=== PATIENT | male | born 1980 | race Caucasian/White ===

== ENCOUNTER 2017-06-14 10:16 | Emergency (ER) | payer BC, MEDICARE, OTHER ==
[2017-06-14 11:34] VITALS: BP 125/84
--- NOTE | 2017-06-14 12:03 | RAD ---
HISTORY: Right elbow pain, trauma COMPARISONS: None VIEWS: 4, Frontal, lateral, and oblique views of the right elbow FINDINGS: BONE DENSITY: Normal. BONES: There is no displaced fracture. There are enthesophytes of the olecranon. JOINTS: There is no arthropathy. ALIGNMENT: There is no dislocation. SOFT TISSUES: There is soft tissue swelling of the olecranon. OTHER FINDINGS: None. IMPRESSION: 1. SPURRING OF THE OLECRANON. 2. SOFT TISSUE SWELLING. 3. NO ACUTE OSSEOUS INJURY. IF SYMPTOMS PERSIST, RECOMMEND REPEAT IMAGING.
--- NOTE | 2017-06-14 12:20 | UC ---
Elbow Pain - HPI Summary HPI Summary: right elbow pain x 2 days banged his right elbow at work 2 days ago , now having sever pain and swelling difficulty with right elbow flexion and extension - History of Current Complaint Chief Complaint: UCUpperExtremity Stated Complaint: LEFT ELBOW INJURY W/C Time Seen by Provider: 06/14/17 11:08 Hx Obtained From: Patient Onset/Duration: Days - 2 Severity Initially: Moderate Severity Currently: Severe Location Of Pain: Is Discrete @ - right elbow Character: Throbbing Aggravating Factor(s): Movement Alleviating Factor(s): Nothing Associated Signs And Symptoms: Positive: Swelling, Redness, Weakness - Allergies/Home Medications Allergies/Adverse Reactions: Allergies Allergy/AdvReac Type Severity Reaction Status Date / Time No Known Allergies Allergy Verified 06/14/17 11:27 Home Medications: Home Medications Lisinopril TAB* [Prinivil TAB 10 MG*] 1 tab DAILY 06/14/17 [History Confirmed ] PMH/Surg Hx/FS Hx/Imm Hx - Additional Past Medical History Additional PMH: chronic kidney failure Cardiovascular History: Hypertension - Surgical History Surgical History: Yes Surgery Procedure, Year, and Place: Right Kidney Transplant, 08/05/13, [facility]. Fistula Left Forearm. Thyroidectomy, 2011, [facility] - Family History Known Family History: Positive: Unknown, Hypertension - Social History Alcohol Use: None Substance Use Type: None Smoking Status (MU): Former Smoker Type: Cigarettes Amount Used/How Often: 1/2 PPD Length of Time of Smoking/Using Tobacco: 15 Years Have You Smoked in the Last Year: Yes - Immunization History Most Recent Influenza Vaccination: 2017 Review of Systems Constitutional: Negative Skin: Negative Eyes: Negative ENT: Negative Respiratory: Negative Is Patient Immunocompromised?: No All Other Systems Reviewed And Are Negative: Yes Physical Exam Triage Information Reviewed: Yes Appearance: Well-Nourished, Pain Distress Vital Signs: Initial Vital Signs Temp 98.7 F 06/14/17 11:30 Pulse 76 06/14/17 11:30 Resp 16 06/14/17 11:30 BP 125/84 06/14/17 11:30 Pulse Ox 100 06/14/17 11:30 Vital Signs Reviewed: Yes Eyes: Positive: Conjunctiva Clear ENT: Positive: Normal ENT inspection, Hearing grossly normal, Pharynx normal Neck: Positive: Supple, Nontender, No Lymphadenopathy Respiratory: Positive: Chest non-tender, Lungs clear, Normal breath sounds Cardiovascular: Positive: RRR, No Murmur, Pulses Normal Musculoskeletal: Positive: Other: - right elbow : + swelling, mild erythema, + tenderness olecranone limited ROM on extension and flexion Neurological: Positive: Alert Diagnostics - Laboratory Diagnostic Studies Completed/Ordered: right elbow xray : + soft tissue swelling , + spuring Elbow Pain Course/Dx - Differential Dx/Diagnosis Provider Diagnoses: right elbow bursisit Discharge - Discharge Plan Condition: Stable Disposition: HOME Prescriptions: Cephalexin CAP* [Keflex CAP*] 500 mg PO TID #30 cap Hydrocodone-Acetaminophen [Timber 5-325 mg] 1 tab PO Q6H PRN #20 tab MDD 4 tabs PRN Reason: Pain Patient Education Materials: Elbow Bursitis (ED) Referrals: Edgar Monique MD [Medical Doctor] - 2 Days Cash Mims MD [Primary Care Provider] -
== END 2017-06-14 12:29 | disposition home or self-care (01) ==
LOC: UCCORT 10:16
DX: M71.521 Other bursitis, not elsewhere classified, right elbow (principal); I10 Essential (primary) hypertension; Z87.891 Personal history of nicotine dependence
CPT/HCPCS: 99212; G0463

== ENCOUNTER 2018-03-09 07:55 | Emergency (ER) | payer BC, OTHER ==
[2018-03-09 08:26] VITALS: BP 145/98
--- NOTE | 2018-03-09 08:37 | UC ---
Throat Pain/Nasal Ben HPI - HPI Summary HPI Summary: 37 year old with sinus pressure for at least 4 days. Cough onset yesterday, with right greater than left eye pressure, vision changes. Pt hasn't taken his meds today, including lisinopril. Patient is immunocompromised on medication for his kidney transplant and advised to seek care when he is sick . He has had mild sinus pressure, the vision ont he right eye was slightly blurry on the periphery a few days ago but no vision loss. no FAJARDO. No stroke Sx per patient / . Has had laynrgitis. 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 No decreased renal function at this time he states . [ End ] - History of Current Complaint Chief Complaint: UCRespiratory Stated Complaint: HEAD CONGESTION Time Seen by Provider: 03/09/18 08:34 Hx Obtained From: Patient, Family/Custody Officer Onset/Duration: Gradual Onset Severity: Moderate Pain Intensity: 6 Cough: Nonproductive Associated Signs & Symptoms: Positive: Hoarseness, Sinus Discomfort, Nasal Discharge - Allergies/Home Medications Allergies/Adverse Reactions: Allergies Allergy/AdvReac Type Severity Reaction Status Date / Time No Known Allergies Allergy Verified 03/09/18 08:27 Home Medications: Home Medications Aspirin [Aspir-Low] 81 mg PO QAM 03/09/18 [History Confirmed 03/09/18] PMH/Surg Hx/FS Hx/Imm Hx Previously Healthy: Yes Endocrine History: Thyroid Disease, Dyslipidemia 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 Fistula Left Forearm. Thyroidectomy, 2011, [facility] - Family History Known Family History: Positive: Unknown, Hypertension - Social History Occupation: Employed Full-time - [employer] Lives: With Family Alcohol Use: None Substance Use Type: None Smoking Status (MU): Former Smoker Type: Cigarettes Amount Used/How Often: 1/2 PPD Length of Time of Smoking/Using Tobacco: 15 Years Have You Smoked in the Last Year: Yes - Immunization History Most Recent Influenza Vaccination: 2016 Review of Systems Constitutional: Fatigue ENT: Ear Ache, Nasal Discharge, Sinus Congestion, Sinus Pain/Tenderness Respiratory: Cough Is Patient Immunocompromised?: Yes All Other Systems Reviewed And Are Negative: Yes Physical Exam Triage Information Reviewed: Yes Appearance: Well-Appearing, No Pain Distress, Well-Nourished Vital Signs: Initial Vital Signs Temp 98.1 F 03/09/18 08:19 Pulse 87 03/09/18 08:19 Resp 13 03/09/18 08:19 BP 145/98 03/09/18 08:19 Pulse Ox 100 03/09/18 08:19 Vital Signs Reviewed: Yes Eye Exam: Normal ENT Exam: Normal ENT: Positive: Nasal congestion, Nasal drainage, Sinus tenderness - mild frontal b/l. Negative: TM bulging, TM dull, TM red Dental Exam: Normal Neck exam: Normal Neck: Positive: 1 Respiratory Exam: Normal Respiratory: Positive: Chest non-tender, Lungs clear, Normal breath sounds, No respiratory distress, No accessory muscle use Cardiovascular Exam: Normal Musculoskeletal Exam: Normal Neurological Exam: Normal Psychological Exam: Normal Skin Exam: Normal Throat Pain/Nasal Course/Dx - Course Course Of Treatment: Appears viral at this time with the short course of time has had Sx with layngitis. Advised DayQuil (per pt ok to take per nephro and can add flonsae and netti pot) and if Sx worsen then in a couple days can start augmentin but he is aware of SE (Cdiff, etx) and will take only if needed. HE is aware to tke BP meds and f/u with PCP trev for his Sx / HTN - Differential Dx/Diagnosis Differential Diagnosis/HQI/PQRI: Laryngitis, Otitis Media, Pharyngitis, Sinusitis, Tonsillitis, URI Provider Diagnoses: Sinusitis -- Viral Discharge - Sign-Out/Discharge Documenting (check all that apply): Patient Departure All imaging exams completed and their final reports reviewed: No Studies - Discharge Plan Condition: Good Disposition: HOME Prescriptions: Amoxicillin/Clavulanate TAB* [Augmentin TAB 875*] 875 mg PO BID 10 Days #20 tab Patient Education Materials: Sinusitis (ED), Hypertension (ED) Referrals: Cash Mims MD [Primary Care Provider] - 4 Days Additional Instructions: As we discussed it appears you have a viral sinus infection and we at this time advise supportive care like DayQuil, Flonase and the Netti pot and if your symptoms worsen in the next couple days to at that time start the antibiotics Augmentin. Also your blood pressure was elevated please follow up with this with your physician - Billing Disposition and Condition Condition: GOOD Disposition: Home
== END 2018-03-09 09:03 | disposition home or self-care (01) ==
LOC: UCCORT 07:55
DX: J32.8 Other chronic sinusitis (principal); B97.89 Other viral agents as the cause of diseases classified elsewhere
CPT/HCPCS: 99212; G0463

== ENCOUNTER 2019-03-12 17:20 | Emergency (ER) | payer BC, MEDICARE ==
[2019-03-12 18:09] VITALS: BP 150/80
[2019-03-12] MEDS ORDERED: Acetaminophen TAB* 325 MG PO ONE (18:10)
[2019-03-12] MEDS ORDERED: Amoxicillin/Clavulanate TAB* 875 MG PO ONE (18:32)
[2019-03-12 18:36] LABS: Influenza A Molecular NEGATIVE (Negative); Influenza B Molecular NEGATIVE (Negative)
--- NOTE | 2019-03-12 18:37 | UC ---
Throat Pain/Nasal Ben HPI - HPI Summary HPI Summary: 38-year-old male comes in with a chief complaint of upper respiratory tract infection symptoms for about 5 days. He's had a runny nose sore throat. Overtime he is developed sinus pressure on the right side. Also feels some pressure in his ears. Denies any chest congestion or shortness of breath. He developed fever today. Patient is on dialysis and he is immunocompromised is on immunosuppressants and he talked to his mushroom spawn maker to recommending getting evaluated for possible treatment with antibiotics. No dysuria. No abdominal pain. - History of Current Complaint Chief Complaint: UCRespiratory Stated Complaint: COUGH, SINUS PRESSURE, FEVER Time Seen by Provider: 03/12/19 17:59 Pain Intensity: 5 - Allergies/Home Medications Allergies/Adverse Reactions: Allergies Allergy/AdvReac Type Severity Reaction Status Date / Time No Known Allergies Allergy Verified 03/12/19 17:56 Home Medications: Home Medications Guaifenesin/Dextromethorphan [Robitussin Cough+Chest Co 10-200 mg] 1 cap PO DAILY 03/12/19 [History Confirmed 03/12/19] PMH/Surg Hx/FS Hx/Imm Hx Previously Healthy: Yes GI/ History: Renal Disease - Surgical History Surgical History: Yes Surgery Procedure, Year, and Place: Right Kidney Transplant, 08/05/13, [facility]. Fistula Left Forearm. Thyroidectomy, 2011, [facility]. CARDIAC STENT - Family History Known Family History: Positive: Unknown, Hypertension - Social History Alcohol Use: None Substance Use Type: None Smoking Status (MU): Former Smoker Type: Cigarettes Amount Used/How Often: 1/2 PPD Length of Time of Smoking/Using Tobacco: 15 Years Have You Smoked in the Last Year: Yes - Immunization History Most Recent Influenza Vaccination: 2017 Review of Systems All Other Systems Reviewed And Are Negative: Yes Constitutional: Positive: Fever, Chills Skin: Positive: Negative Eyes: Positive: Negative ENT: Positive: Sore Throat, Ear Ache, Nasal Discharge, Sinus Congestion, Sinus Pain/Tenderness Respiratory: Positive: Negative Cardiovascular: Positive: Negative Gastrointestinal: Positive: Negative Genitourinary: Positive: Negative Motor: Positive: Negative Neurovascular: Positive: Negative Musculoskeletal: Positive: Myalgia Neurological: Positive: Negative Psychological: Positive: Negative Is Patient Immunocompromised?: Yes Physical Exam Triage Information Reviewed: Yes Appearance: No Pain Distress, Well-Nourished, Ill-Appearing - MILD Vital Signs: Initial Vital Signs Temp 102.7 F 03/12/19 17:58 Pulse 93 03/12/19 17:58 Resp 22 03/12/19 17:58 BP 150/80 03/12/19 17:58 Pulse Ox 98 03/12/19 17:58 Vital Signs Reviewed: Yes Eye Exam: Normal Eyes: Positive: Conjunctiva Clear ENT: Positive: Pharyngeal erythema, Nasal congestion, Nasal drainage, TM red - B /L. Negative: Muffled voice, Hoarse voice Neck: Positive: Supple Respiratory: Positive: Lungs clear, Normal breath sounds, No respiratory distress Cardiovascular: Positive: RRR Abdomen Description: Positive: Nontender, Soft Musculoskeletal: Positive: Strength Intact, ROM Intact Psychological: Positive: Normal Response To Family, Age Appropriate Behavior Skin Exam: Normal Throat Pain/Nasal Course/Dx - Course Course Of Treatment: . Patient is febrile. Is given acetaminophen in clinic. The primary focus of the infection appears to be in the right maxillary sinuses is pressure there and rhinorrhea. Is TMS are red that may be due to fever. He does have erythema his airway is open no difficulty with speech or breathing. Lungs are clear no abdominal pain. We discussed the fact that he is immunocompromised. His heart rates elevated at 93 bpm his blood pressure is not hypotensive. We discussed evaluation and treatment right now in the emergency department versus starting oral antibiotics here and then going to the emergency department if worsen. Patient prefers to not go to the emergency department at this time but he did say that if he did get worse he would go the emergency department. Patient's family member was here during a conversation. - Differential Dx/Diagnosis Provider Diagnosis: Sinusitis, Fever Discharge ED - Sign-Out/Discharge Documenting (check all that apply): Patient Departure All imaging exams completed and their final reports reviewed: No Studies - Discharge Plan Condition: Stable Disposition: HOME Prescriptions: Amoxicillin/Clavulanate TAB* [Augmentin TAB 875*] 875 mg PO BID #19 tab Patient Education Materials: Sinusitis (ED), Fever in Adults (ED) Forms: *Work Release Referrals: Cash Mims MD [Primary Care Provider] - Additional Instructions: FOLLOW UP WITH YOUR DOCTOR. GO TO THE EMERGENCY DEPARTMENT IF NOT IMPROVED OR IF WORSE OR ANY QUESTIONS OR CONCERNS. - Billing Disposition and Condition Condition: STABLE Disposition: Home
== END 2019-03-12 18:49 | disposition home or self-care (01) ==
LOC: UCCORT 17:20
DX: J32.9 Chronic sinusitis, unspecified (principal); R50.9 Fever, unspecified; Z87.891 Personal history of nicotine dependence
CPT/HCPCS: 81003; 87651; 99212; A9270-GY; G0463